=== PATIENT | male | born 1970 | race Caucasian/White ===

== ENCOUNTER → 2018-04-10 | Outpatient (CLI) | payer OTHER ==
[~2018-04-10] MED LIST: OMNIPAQUE 350 MG/ML, 100ML BOTTLE ONE
== END | disposition home or self-care (01) ==
LOC: RAD 13:58
PROVIDERS: ATTEND Nurse Practitioner Family
DX: K76.89 Other specified diseases of liver (principal); K85.92 Acute pancreatitis with infected necrosis, unspecified; K59.1 Functional diarrhea; R14.0 Abdominal distension (gaseous)
CPT/HCPCS: 74178; Q9967